=== PATIENT | female | born 1945 | race Caucasian/White ===

== ENCOUNTER 2023-08-14 16:41 | Emergency (ER) | payer SELFPAY ==
[2023-08-14 16:43] VITALS: BP 195/88; PULSE 60; RESP 14; TEMP 36.4; O2SAT 100
[2023-08-14 17:02] LABS: Add Urine Microscopic? NO; Charge for UA Resulting for Rev
[2023-08-14 17:06] VITALS: BP 174/100; PULSE 64; O2SAT 100
[2023-08-14 17:08] LABS: Bilirubin Urine Neg (Negative); Blood Urine Neg (Negative); Glucose Urine UA Norm (Normal); Ketones Urine Negative (Negative); Leukocyte Esterase Urine Negative (Negative); Nitrate Urine Negative (Negative); Protein Urine Neg (Negative); Specific Gravity, Urine 1.005 (1.005-1.030); Urine Appearance Clear (CLEAR); Urine Color Yellow (Yellow); Urobilinogen Urine Neg (Negative); pH Urine 7 (5-7)
[2023-08-14] MEDS: sodium chloride 0.9% 1,000 ML 999 ML IV (17:09)
[2023-08-14 17:15] LABS: Basophils % 0.4 %; Eosinophils # 0.1 10^3/uL (0.0-0.8); Eosinophils % 0.6 %; Hematocrit 38.3 % (36-47); Lymphocytes # 1.8 10^3/uL (0.8-4.8); Lymphocytes % 16.1 %; Mean Corpuscular HGB Conc 33.4 g/dL (30-55); Mean Corpuscular Hemoglobin 30.5 pg (27-33); Mean Corpuscular Volume 91.4 fl (85-98); Mean Platelet Volume 9.5 fL (7.4-10.4); Monocytes # 0.7 10^3/uL (0.2-0.9); Monocytes % 6.5 %; Neutrophils # 8.39 10^3/uL (1.8-7.7); Neutrophils % 75.9 %; Nucleated Red Blood Cells % 0 %; Platelet Count 309 10^3/cmm (157-399); Red Blood Count 4.19 10^6/uL (3.85-5.65); White Blood Count 11.05 10^3/uL (3.29-11.43)
--- NOTE | 2023-08-14 17:18 | XRR_ITS ---
PROCEDURE INFORMATION: Exam: XR Chest Exam date and time: 08/14/2023 5:30 PM Age: 77 years old Clinical indication: Dyspnea and fever; Additional info: Dyspnea/cough TECHNIQUE: Imaging protocol: Radiologic exam of the chest. Views: 1 view. COMPARISON: CR XR acute abdomen series [id number] 07/18/2017 8:46 PM FINDINGS: Lungs: Unremarkable. No consolidation. Pleural spaces: Unremarkable. No pleural effusion. No pneumothorax. Heart/Mediastinum: Unremarkable. No cardiomegaly. Bones/joints: Unremarkable. XR/XR chest 1V portable [id number] IMPRESSION: No acute findings.
--- NOTE | 2023-08-14 17:18 | CTR_ITS ---
PROCEDURE INFORMATION: Exam: CT Abdomen And Pelvis With Contrast Exam date and time: 08/14/2023 5:49 PM Age: 77 years old Clinical indication: Nausea and vomiting and other: Chils; Additional info: Abd pain TECHNIQUE: Imaging protocol: Computed tomography of the abdomen and pelvis with contrast. Sagittal and coronal reformatted images were created and reviewed. Radiation optimization: All CT scans at this facility use at least one of these dose optimization techniques: automated exposure control; mA and/or kV adjustment per patient size (includes targeted exams where dose is matched to clinical indication); or iterative reconstruction. Contrast material: OMNI 350; Contrast volume: 80 ml; Contrast route: INTRAVENOUS (IV); COMPARISON: CR XR acute abdomen series [id number] 07/18/2017 8:46 PM RADIATION DOSE METRICS: Total DLP (mGy-cm): 328 FINDINGS: Lungs: Patchy areas of ground-glass opacification in the visualized lower lungs suspicious for pneumonitis. Pleural spaces: No pleural effusion. Heart: Visualized portions of the heart are mildly enlarged. Coronary arteries: Mild atherosclerotic calcification in the visualized coronary arteries. Liver: Periportal edema. Small area of decreased density in the liver adjacent to the falciform ligament, this most likely represents focal fatty infiltration. 6.6 mm hepatic cyst. Gallbladder and biliary ducts: The gallbladder is unremarkable. No biliary ductal dilatation. Pancreas: The pancreas is unremarkable. No pancreatic ductal dilatation. Spleen: The spleen is unremarkable. Adrenal glands: The right and left adrenal glands are unremarkable. Kidneys and ureters: Subcentimeter hypodense foci in both right and left kidneys that are too small to characterize, however likely represent small cysts. The distal right and left ureters are obscured by adjacent bowel loops and soft tissue structures. The visualized portions of the ureters are unremarkable. Stomach and bowel: Scattered diverticula in the sigmoid colon. No evidence for diverticulitis. Appendix: The appendix is visualized and is unremarkable. No evidence of appendicitis. Intraperitoneal space: No free intraperitoneal air. No ascites. No loculated fluid collections to suggest an abscess. Vasculature: Mild atherosclerotic changes in the visualized arteries. No evidence for aortic aneurysm or aortic dissection. Hepatic veins, portal veins, splenic vein, and SMV are patent. Lymph nodes: No lymphadenopathy. Urinary bladder: Unremarkable as visualized. Reproductive: The uterus is unremarkable. The right ovary is not definitely visualized, not an expected in a postmenopausal female. This is likely due to ovarian atrophy. The left ovary is unremarkable. Bones/joints: Degenerative changes in the spine, sacroiliac joints, and hips. Soft tissues: Mild body wall edema. CT/CT abdomen pelvis w con* [id number] IMPRESSION: 1. Periportal edema. Differential diagnosis includes systemic volume overload, passive hepatic congestion, and acute hepatitis. Recommend clinical correlation. 2. Scattered diverticula in the sigmoid colon. No evidence for diverticulitis. 3. Mild body wall edema. 4. Patchy areas of ground-glass opacification in the visualized lower lungs suspicious for pneumonitis. 5. Incidental/nonacute findings are listed in the report. COMMENTS: Consistent with the [employer]'s Incidental Findings Committee white paper (J Am Varun Radiol 2018): Any incidental renal lesion less than 1 cm or classified as too small to characterize, or any incidental cystic renal lesion characterized as simple-appearing, is likely benign. No follow-up imaging is recommended for these lesions per consensus recommendations based on imaging criteria.
--- NOTE | 2023-08-14 17:20 | ED_ITS ---
HPI - Weakness 2 General: Chief complaint: Weakness Stated complaint: possible dehydration, weakness, vomitting, MICHAEL Time Seen by Provider: 08/14/23 16:54 Source: patient Mode of arrival: ambulatory History of Present Illness: 77-year-old female presents to the [facility] ency room with complaint of nausea abdominal pain. She denies chest pain. She states she has been spitting up some things. She had some teeth pulled yesterday. In addition to this she states she is in home that has no air conditioning. She has been drinking several bottles of water states she drinks 4 bottles of water per day. Is very difficult to get any specific information from her. MD Complaint: generalized weakness Associated symptoms: Reports nausea and vomiting; Denies chest pain, chills, dysuria or fever(s) Review of Systems 2 Const: Denies: fever(s) or chills Card: Denies: chest pain Resp: Denies: dyspnea GI: Reports: abdominal pain, nausea and vomiting : Denies: dysuria, urinary frequency or urinary urgency Musc: Denies: neck pain or back pain Skin/Breast: Denies: rash Physical Exam 2 Const: GENERAL APPEARANCE: cooperative and comfortable O RIENTATION/CONSCIOUSNESS: Yes awake, Yes oriented to person, Yes oriented to place and Yes oriented to time HENMT: COMMON NORMALS: normocephalic, atraumatic and hearing grossly normal bilaterally HEAD & SCALP: normocephalic and atraumatic Resp: COMMON NORMALS: normal respiratory effort, No retractions, No use of accessory muscles and clear to auscultation bilaterally AUSCULTATION: clear to auscultation bilaterally Cardio: COMMON NORMALS: regular rate, regular rhythm and No murmurs present (Cardio) RATE: regular rate RHYTHM: regular rhythm GI: COMMON NORMALS: No hepatosplenomegaly present AUSCULTATION: Yes normoactive bowel sounds PALPATION: Yes Tenderness to palpation present (GI) (Diffuse nonspecific), No Guarding due to palpation present (GI) and Yes No hepatosplenomegaly present Extremity: COMMON NORMALS: normal to inspection, capillary refill normal, no clubbing, cyanosis or edema, no calf tenderness and no pedal edema Neuro: SENSORIUM/ORIENTATION: Yes oriented to person, Yes oriented to place and Yes oriented to time Skin: COMMON NORMALS: no rashes or lesions noted GENERAL SKIN EXAM: no rashes or lesions noted Course 2 Vital Signs: Vital signs: Vital Signs Temperature 97.6 F 08/14/23 16:43 Pulse Rate 64 08/14/23 17:06 Respiratory Rate 14 08/14/23 16:43 Blood Pressure 174/100 08/14/23 17:06 Pulse Oximetry 100 08/14/23 17:06 Oxygen Delivery Me thod Room Air 08/14/23 17:06 MDM - Weakness Medical Decision Making Significant hyponatremia will admit. Renal function normal. She has a slight elevation of her liver functions. Medical Records I reviewed the patient's medical records. Lab Data I reviewed the patient's lab results. 08/14/23 17:08 08/14/23 17:08 Radiology Impressions Chest X-Ray 08/14/23 17:18 IMPRESSION: No acute findings. Laboratory Results WBC 11.05 10^3/uL (3.29-11.43) 08/14/23 17:08 RBC 4.19 10^6/uL (3.85-5.65) 08/14/23 17:08 Hgb 12.80 g/dL (11.27-16.99) 08/14/23 17:08 Hct 38.3 % (36-47) 08/14/23 17:08 MCV 91.4 fl (85-98) 08/14/23 17:08 MCH 30.5 pg (27-33) 08/14/23 17:08 MCHC 33.4 g/dL (30-55) 08/14/23 17:08 RDW 13.0 % (12.1-15.1) 08/14/23 17:08 Plt Count 309 10^3/cmm (157-399) 08/14/23 17:08 MPV 9.5 fL (7.4-10.4) 08/14/23 17:08 Neut % (Auto) 75.9 % 08/14/23 17:08 Lymph % (Auto) 16.1 % 08/14/23 17:08 [place] % (Auto) 6.5 % 08/14/23 17:08 Eos % (Auto) 0.6 % 08/14/23 17:08 Baso % (Auto) 0.4 % 08/14/23 17:08 Neut # (Auto) 8.39 10^3/uL (1.8-7.7) H 08/14/23 17:08 Lymph # (Auto) 1.8 10^3/uL (0.8-4.8) 08/14/23 17:08 [place] # (Auto) 0.7 10^3/uL (0.2-0.9) 08/14/23 17:08 Eos # (Auto) 0.1 10^3/uL (0.0-0.8) 08/14/23 17:08 Baso # (Auto) 0.0 10^3/uL (0.0-0.1) 08/14/23 17:08 Nucleated RBC % (auto) 0 % 08/14/23 17:08 Nucleated RBCs # 0.0 /100WBC 08/14/23 17:08 Sodium 117 mmol/L (136-145) L* 08/14/23 17:08 Potassium 4.5 mmol/L (3.5-5.1) 08/14/23 17:08 Chloride 82 mmol/L (98-107) L 08/14/23 17:08 Carbon Dioxide 23 mmol/L (22-29) 08/14/23 17:08 Anion Gap 16.5 (5-19) 08/14/23 17:08 BUN 10 mg/dL (8-23) 08/14/23 17:08 Creatinine 0.6 mg/dL (0.5-0.9) 08/14/23 17:08 GFR Calculation Not Reportable 08/14/23 17:08 Glucose 114 mg/dL (65-115) 08/14/23 17:08 Calculated Osmolality 244 mOsm/kg (285-295) L 08/14/23 17:08 Calcium 8.7 mg/dL (8.5-10.5) 08/14/23 17:08 Total Bilirubin 0.7 mg/dL (0.15-1.2) 08/14/23 17:08 AST 59 U/L (0-32) H 08/14/23 17:08 ALT 55 U/L (0-33) H 08/14/23 17:08 Alkaline Phosphatase 102 U/L (35-105) 08/14/23 17:08 Total Protein 6.9 g/dL (6.6-8.7) 08/14/23 17:08 Albumin 4.3 g/dL (3.5-5.2) 08/14/23 17:08 Globulin 2.6 g/dL (1.3-4.6) 08/14/23 17:08 Lipase 23 U/L (13-60) 08/14/23 17:08 Urine Color Yellow (Yellow) 08/14/23 16:58 Urine Appearance Clear (CLEAR) 08/14/23 16:58 Urine pH 7 (5-7) 08/14/23 16:58 Ur Specific [place] 1.005 (1.005-1.030) 08/14/23 16:58 Urine Protein Neg (Negative) 08/14/23 16:58 Urine Glucose (UA) Norm (Normal) 08/14/23 16:58 Urine Ketones Negative (Negative) 08/14/23 16:58 Urine Blood Neg (Negative) 08/14/23 16:58 Urine Nitrate Negative (Negative) 08/14/23 16:58 Urine Bilirubin Neg (Negative) 08/14/23 16:58 Urine Urobilinogen Neg mg/dL (Negative) 08/14/23 16:58 Ur Leukocyte Esterase Negative (Negative) 08/14/23 16:58 Serum Ketones Negative (Negative) 08/14/23 17:08 All radiology interpretation(s) finalized by discharge Discharge Plan Discharge Patient Disposition: Admitted As Inpatient Clinical Impression: Hyponatremia, Elevated transaminase level Condition: Stable Coding Level of Care Code ED [employer] Member for [place]
[2023-08-14 17:28] LABS: Ketone (Acetest) Serum Negative (Negative)
[2023-08-14] MEDS: ondansetron 2 mg/ML SDV 2 mL 4 MG IVP (17:33)
[2023-08-14 17:35] LABS: Alanine Aminotransferase 55 U/L (0-33); Albumin Level 4.3 g/dL (3.5-5.2); Alkaline Phosphatase 102 U/L (35-105); Anion Gap 16.5 (5-19); Aspartate Amino Transferase 59 U/L (0-32); Blood Urea Nitrogen 10 mg/dL (8-23); Calcium 8.7 mg/dL (8.5-10.5); Carbon Dioxide 23 mmol/L (22-29); Chloride 82 mmol/L (98-107); Globulin 2.6 g/dL (1.3-4.6); Glucose 114 mg/dL (65-115); Osmolality Calculated 244 mOsm/kg (285-295); Potassium 4.5 mmol/L (3.5-5.1); Total Bilirubin 0.7 mg/dL (0.15-1.2); Total Protein 6.9 g/dL (6.6-8.7)
[2023-08-14 17:36] LABS: Lipase 23 U/L (13-60)
[2023-08-14 17:43] LABS: Sodium 117 mmol/L (136-145)
[2023-08-14] MEDS: iohexol 350 mg/mL 500 mL Btl (per mL) IV (17:53)
--- NOTE | 2023-08-14 17:56 | ECG_ITS ---
[facility] Test Date: 2023-08-14 Pat Name: Miguelina Reveles Department: Room: Gender: Female Welfare Aide: : 1945 Requested By: Tin Davenport Order Number: [id number] Alfred MD: Christian Hammer M.D. Measurements Intervals [place] Rate: 63 P: 82 [place]: 228 QRS: 62 QRSD: 102 T: 56 QT: 419 QTc: 431 Interpretive Statements SINUS RHYTHM WITH FIRST DEGREE AV BLOCK INCOMPLETE RIGHT BUNDLE BRANCH BLOCK [90+ ms QRS DURATION, TERMINAL R IN V1/V2, 40+ ms S IN I/aVL/V4/V5/V6] No previous ECG available for comparison Electronically Signed On 08-14-2023 20:18:48 CDT by Christian Hammer M.D. [id number]
[2023-08-14 18:06] LABS: Troponin(5th) Baseline 10 ng/L (0-10)
--- NOTE | 2023-08-14 18:10 | PM.HP ---
Providers/Chief Complaint Chief Complaint: possible dehydration, weakness, vomitting, MICHAEL History of Present Illness Miguelina Reveles is a 77 year old female Medications/Allergies Allergies Allergy/AdvReac Type Severity Reaction Status Date / Time No Known Allergies Allergy Verified 08/14/23 16:48 Vitals/I&O/Wt Last Vital Signs Temp 97.6 F 08/14/23 16:43 Pulse 64 08/14/23 17:06 Resp 14 08/14/23 16:43 BP 174/100 08/14/23 17:06 Pulse Ox 100 08/14/23 17:06 O2 Del Method Room Air 08/14/23 17:06 Weight last 48 hrs Weight 49.895 kg Data 08/14/23 17:08 08/14/23 17:08 Coding Level of Care Code Acute Code for Chg Gal[place]
[2023-08-14 18:38] LABS: INR 0.98 (0.8-1.2)
[2023-08-14 18:39] LABS: Partial Thromboplastin Time 30.4 SECONDS (23.9-36.7)
[2023-08-14 18:44] LABS: Ammonia 19 umol/L (11-51)
[2023-08-14 18:45] LABS: Anion Gap 13.7 (5-19); Blood Urea Nitrogen 10 mg/dL (8-23); Calcium 7.7 mg/dL (8.5-10.5); Carbon Dioxide 22 mmol/L (22-29); Chloride 84 mmol/L (98-107); Glucose 104 mg/dL (65-115); Osmolality Calculated 239 mOsm/kg (285-295); Potassium 4.7 mmol/L (3.5-5.1)
[2023-08-14 18:55] VITALS: BP 163/86; PULSE 59; O2SAT 95
[2023-08-14 18:55] LABS: Alcohol Level < 10 mg/dL (0-10); Sodium 115 mmol/L (136-145)
[2023-08-14 19:02] VITALS: BP 153/81; PULSE 59; O2SAT 96
[2023-08-14 19:05] LABS: Add Urine Microscopic? NO; Charge for UA Resulting for Rev
[2023-08-14 19:14] LABS: Bilirubin Urine Neg (Negative); Blood Urine Neg (Negative); Glucose Urine UA Norm (Normal); Ketones Urine 1+ (Negative); Leukocyte Esterase Urine Negative (Negative); Nitrate Urine Negative (Negative); Protein Urine Neg (Negative); Specific Gravity, Urine 1.005 (1.005-1.030); Urine Appearance Clear (CLEAR); Urine Color Yellow (Yellow); Urobilinogen Urine Neg (Negative); pH Urine 7 (5-7)
[2023-08-14 19:18] LABS: Amphetamines Screen Urine Negative (Negative); Barbiturates Screen Urine Negative (Negative); Benzodiazepines Screen Urine Negative (Negative); Cocaine Screen Urine Negative (Negative); Opiate Screen Urine Positive (Negative); PCP Screen Urine Negative (Negative); THC Screen Urine Negative (Negative)
[2023-08-14 19:20] LABS: Troponin 5 2HR 13.08 ng/L (0-10); Troponin 5 2HR Delta 3.08 ABS# (0-10)
[2023-08-14 19:30] LABS: Urine Random Sodium 66 mmol/L
--- NOTE | 2023-08-14 20:32 | PC.NURSE ---
PATIENT STATES SHE DOES NOT WANT HEPARIN, WANTS TO MAKE PHONE CALLS. PATIENT EDUCATED ON MEDICATION. DR. JIMENEZ EDUCATED PATIENT. PATIENT REFUSED MED.
--- NOTE | 2023-08-14 20:52 | PC.NURSE ---
PATIENT REFUSING EKG AT THIS TIME. DR JIMENEZ AWARE AND OKAYED
[2023-08-14 22:04] VITALS: BP 142/77; PULSE 63; RESP 18; O2SAT 98
[2023-08-14 22:29] VITALS: BP 147/77; PULSE 61; RESP 16; TEMP 36.4; O2SAT 97
[2023-08-18 13:24] LABS: Osmolality Serum 243 mOsm/kg (278-305)
[2023-08-18 15:46] LABS: Osmolality Urine 285 mOsm/kg (50-1200)
== END 2023-08-14 22:24 | disposition admitted as inpatient to this hospital (09) ==
LOC: ER 18:58 → ER IP 20:54
PROVIDERS: Family Medicine; Internal Medicine; Emergency Provider Emergency Medicine; PCP Internal Medicine
DX: E87.1 Hypo-osmolality and hyponatremia (principal); R74.01 Elevation of levels of liver transaminase levels
CPT/HCPCS: 36415; 51702; 71045; 74177; 80048; 80053; 80306; 80307; 81003; 82009; 82140; 83690; 83930; 83935; 84300; 84484; 85025; 85610; 85730; 93005; 96374; 99285; J2405; J7030; Q9967

== ENCOUNTER 2024-11-25 10:44 | Outpatient (CLI) | payer SELFPAY ==
[2024-11-25 11:30] LABS: Hematocrit 41.3 % (36-47); Hemoglobin 13.70 g/dL (11.27-16.99); Mean Corpuscular HGB Conc 33.2 g/dL (30-55); Mean Corpuscular Hemoglobin 30.1 pg (27-33); Mean Corpuscular Volume 90.8 fl (85-98); Nucleated Red Blood Cells % 0 %; Platelet Count 412 10^3/cmm (157-399); Red Blood Count 4.55 10^6/uL (3.85-5.65); White Blood Count 7.19 10^3/uL (3.29-11.43)
[2024-11-25 12:21] LABS: Alanine Aminotransferase 18 U/L (0-33); Albumin Level 4.4 g/dL (3.5-5.2); Alkaline Phosphatase 84 U/L (35-105); Anion Gap 17.5 (5-19); Aspartate Amino Transferase 22 U/L (0-32); Blood Urea Nitrogen 10 mg/dL (8-23); Calcium 9.2 mg/dL (8.5-10.5); Carbon Dioxide 25 mmol/L (22-29); Chloride 95 mmol/L (98-107); Cholesterol 231 mg/dL (0-200); Globulin 2.8 g/dL (1.3-4.6); Glucose 90 mg/dL (65-115); HDL Cholesterol 91 mg/dL (60-100); Magnesium 2.3 mg/dL (1.7-2.3); Osmolality Calculated 275 mOsm/kg (285-295); Potassium 4.5 mmol/L (3.5-5.1); Sodium 133 mmol/L (136-145); Thyroid Stimulating Hormone 2.08 uIU/mL (0.27-4.20); Total Protein 7.2 g/dL (6.6-8.7); Triglycerides 62 mg/dL (0-150); Vitamin B12 1004 pg/mL (232-1245)
[2024-11-25 12:43] LABS: Free T4 Free Thyroxine 1.17 ng/dL (0.82-1.77)
== END 2024-11-25 10:45 | disposition home or self-care (01) ==
PROVIDERS: PCP Family Medicine; Visit Provider Family Medicine
DX: H91.90 Unspecified hearing loss, unspecified ear (principal); H93.19 Tinnitus, unspecified ear; E87.1 Hypo-osmolality and hyponatremia; R74.01 Elevation of levels of liver transaminase levels; R79.89 Other specified abnormal findings of blood chemistry; Z77.018 Contact with and (suspected) exposure to other hazardous metals; E83.42 Hypomagnesemia
CPT/HCPCS: 36415; 80053; 80061; 82306; 82533; 82607; 82746; 83735; 83825; 84439; 84443; 85025